=== PATIENT | female | born 1995 | race Caucasian/White ===

== ENCOUNTER 2017-09-29 07:41 | Emergency (ER) | payer BC ==
--- NOTE | 2017-09-29 07:52 | ER Document Report ---
HPI - HPI Pain Level: 2 Context: 22-year-old female complaining of swollen tonsils this morning. Mild pain when she swallows. No recent illness. No runny nose or cough. No fever. No chest pain or shortness of breath. No nausea vomiting or diarrhea. No abdominal pain. Last menstrual period 2 weeks ago. No contraception. Past Medical History - General Information source: Patient - Social History Smoking Status: Never Smoker Frequency of alcohol use: None Drug Abuse: None Lives with: Family Family History: Reviewed & Not Pertinent - Medical History Medical History: Negative Surgical Hx: Negative Vertical Provider Document - CONSTITUTIONAL Agree With Documented VS: Yes Exam Limitations: No Limitations General Appearance: No Apparent Distress - INFECTION CONTROL TRAVEL OUTSIDE OF THE [place] IN LAST 30 DAYS: No - HEENT HEENT: Normocephalic. negative: Pharyngeal Erythema, Tympanic Membrane Red Notes: large tonsils (she states aren't usually like this) airway open. no abscess. - NECK Neck: Supple. negative: Lymphadenopathy-Left, Lymphadenopathy-Right - RESPIRATORY Respiratory: Breath Sounds Normal, No Respiratory Distress - CARDIOVASCULAR Cardiovascular: Regular Rate, Regular Rhythm - MUSCULOSKELETAL/EXTREMETIES Musculoskeletal/Extremeties: MAEW, FROM - NEURO Level of Consciousness: Awake, Alert - DERM Integumentary: Warm, Dry, No Rash Discharge - Discharge Clinical Impression: Tonsillitis Condition: Good Disposition: HOME, SELF-CARE Instructions: ENT, Tonsillitis ([facility]) Additional Instructions: throat culture is pending to er if worse see ENT doctor if persists dose of steroid today for the tonsil swelling Prescriptions: Prednisone [Deltasone 10 mg Tablet] 10 mg PO ASDIR PRN #15 tablet PRN Reason: Forms: Parent Work Note, Return to Work
[2017-09-29] MEDS ORDERED: DEXAMETHASONE 4 MG TABLET PO ONE (08:18)
[2017-09-29 09:14] VITALS: BP 113/68
== END 2017-09-29 09:19 | disposition home or self-care (01) ==
LOC: ER 07:41
DX: J03.90 Acute tonsillitis, unspecified (principal)
CPT/HCPCS: 87070; 87880; 99283

== ENCOUNTER 2017-10-14 16:54 | Emergency (ER) | payer BC ==
--- NOTE | 2017-10-14 18:25 | ER Document Report ---
ED GI/ - General Chief Complaint: Flank Pain Stated Complaint: BACK PAIN Time Seen by Provider: 10/14/17 18:18 Mode of Arrival: Ambulatory Information source: Patient, [facility] Records Notes: This 22-year-old female patient comes emergency room complaining of right flank pain lower abdominal pain. She reports moved some furniture about 3 weeks ago. Was seen in the emergency room on 09/29/2017 with viral tonsillitis and discharged on steroids. On about 10/04/2017 she began having the right flank pain which tends to go down the back. She states that has not been getting any better. Last night she felt feverish and had chills. There is no nausea vomiting or diarrhea. There is no frequency or dysuria. Last menstrual period was about 28 days ago, she is due now, there is possibility of . The patient points to the area of her flank pain, is actually her paravertebral muscles in the thoracic back around the inferior medial scapular region. There is no CVA percussion tenderness on exam. TRAVEL OUTSIDE OF THE [place] IN LAST 30 DAYS: No - Related Data Allergies/Adverse Reactions: amoxicillin Allergy (Verified 10/14/17 16:55) Past Medical History - General Information source: Patient, [facility] Records - Social History Smoking Status: Never Smoker Cigarette use (# per day): No Chew tobacco use (# tins/day): No Smoking Education Provided: No Frequency of alcohol use: None Drug Abuse: None Occupation: Unemployed Lives with: Spouse/Significant other Family History: Reviewed & Not Pertinent Patient has suicidal ideation: No Patient has homicidal ideation: No - Medical History Medical History: Negative Surgical Hx: Negative Review of Systems - Review of Systems Constitutional: Chills, Fever EENT: No symptoms reported Cardiovascular: No symptoms reported Respiratory: Cough Gastrointestinal: No symptoms reported Genitourinary: No symptoms reported Female Genitourinary: See HPI - About 28 days ago Musculoskeletal: See HPI Skin: No symptoms reported Hematologic/Lymphatic: No symptoms reported Neurological/Psychological: No symptoms reported Physical Exam - Vital signs Vitals: Temp Pulse Resp BP Pulse Ox 98.6 F 130 H 18 129/77 H 98 10/14/17 17:10 10/14/17 17:10 10/14/17 17:10 10/14/17 17:10 10/14/17 17:10 Interpretation: Tachycardic - General General appearance: Appears well, Alert In distress: None - HEENT Head: Normocephalic, Atraumatic Eyes: Normal Pupils: PERRL Neck: Normal - Respiratory Respiratory status: No respiratory distress Breath sounds: Rhonchi - There is some rhonchi on forced cough. - Cardiovascular Rhythm: Regular, Tachycardia - 126 Heart sounds: Normal auscultation Murmur: No - Abdominal Inspection: Normal Tenderness: Nontender - Back Back: Tender - There is tenderness to palpate the right para spinous muscles around the T 7 to T10 level. There is no tenderness on the left side corresponding to that level.. No: CVA tenderness - There is no CVA percussion tenderness on the right or the left. - Extremities General upper extremity: Normal inspection General lower extremity: Normal inspection - Neurological Neuro grossly intact: Yes - Psychological Associated symptoms: Normal affect, Normal mood - Skin Skin Temperature: Warm Skin Moisture: Dry Skin Color: Normal Course - Re-evaluation Re-evalutation: 10/14/17 19:36 The patient's heart rate was 130 at triage. She was given several glasses of water to drink for a slightly concentrated urine This time the heart rate is still above 120 with no clear explanation. Informed her that we will send her to the back for IV hydration and a workup to look into why she remains tachycardic. She now states that she also has discomfort around the chest bilaterally. - Vital Signs Vital signs: Temp Pulse Resp BP Pulse Ox 98.6 F 130 H 18 129/77 H 98 10/14/17 17:10 10/14/17 17:10 10/14/17 17:10 10/14/17 17:10 10/14/17 17:10 - Laboratory Laboratory results interpreted by me: 10/14/17 18:25 Urine Ketones TRACE H Urine Blood MODERATE H
[2017-10-14 18:47] LABS: APPEARANCE,URINE SLIGHTLY-CLOUDY; BILIRUBIN,URINE NEGATIVE (NEGATIVE); COLOR,URINE YELLOW; GLUCOSE, URINE NEGATIVE (NEGATIVE); KETONES,URINE TRACE mg/dL (NEGATIVE); LEUKOCYTE ESTERASE,URINE NEGATIVE (NEGATIVE); NITRITE,URINE NEGATIVE (NEGATIVE); PROTEIN,URINE NEGATIVE (NEGATIVE); URINE SPECIFIC GRAVITY 1.027; UROBILINOGEN,URINE NEGATIVE mg/dL (<2.0)
[2017-10-14] MEDS ORDERED: NORMAL SALINE 1000 ML 1,000 ML IV PRN (19:34)
[2017-10-14 20:04] LABS: HEMATOCRIT 43.2 % (36.0-47.0); HEMOGLOBIN 14.3 g/dL (12.0-15.5); MEAN CORPUSCULAR HEMOGLOBIN 26.5 pg (27.0-33.4); MEAN CORPUSCULAR HGB CONC 33.1 g/dL (32.0-36.0); MEAN CORPUSCULAR VOLUME 80 fl (80-97); PLATELET COUNT 404 10^3/uL (150-450); RED CELL DISTRIBUTION WIDTH 13.6 % (11.5-14.0); WHITE BLOOD COUNT 23.6 10^3/uL (4.0-10.5)
[2017-10-14] MEDS ORDERED: LIDOCAINE 5% (700 MG) TRANSDERMAL ADH..PATCH TP ONE (20:06)
[2017-10-14] MEDS ORDERED: MORPHINE SULFATE IR 15 MG TABLET PO ONE (20:06)
[2017-10-14] MEDS ORDERED: IBUPROFEN 600 MG TABLET PO ONE (20:06)
[2017-10-14 20:20] LABS: ABSOLUTE LYMPHOCYTES# (MANUAL) 5.7 10^3/uL (0.5-4.7); ABSOLUTE MONOCYTES # (MANUAL) 0.7 10^3/uL (0.1-1.4); BASOPHILS % (MANUAL) 0 % (0-2); EOSINOPHILS % (MANUAL) 1 % (0-6); LYMPHOCYTES % (MANUAL) 19 % (13-45); MONOCYTES % (MANUAL) 3 % (3-13); SEGMENTED NEUTROPHILS % (MAN) 72 % (42-78); TOTAL CELLS COUNTED 100
[2017-10-14 20:22] LABS: PLATELET COMMENT ADEQUATE; PLATELET LARGE PRESENT
[2017-10-14 20:23] LABS: TOXIC GRANULATION SLIGHT
[2017-10-14 20:26] LABS: ALANINE AMINOTRANSFERASE 86 U/L (9-52); ALBUMIN 5.1 g/dL (3.5-5.0); ALKALINE PHOSPHATASE 176 U/L (38-126); ANION GAP 17 (5-19); ASPARTATE AMINO TRANSFERASE 30 U/L (14-36); BILIRUBIN,DIRECT 0.3 mg/dL (0.0-0.4); BILIRUBIN,TOTAL 0.8 mg/dL (0.2-1.3); BLOOD UREA NITROGEN 8 mg/dL (7-20); CALCIUM 10.7 mg/dL (8.4-10.2); CARBON DIOXIDE 27 mmol/L (22-30); CHLORIDE 98 mmol/L (98-107); GLUCOSE 78 mg/dL (75-110); POTASSIUM 3.7 mmol/L (3.6-5.0); SODIUM 142.4 mmol/L (137-145); TOTAL PROTEIN 8.8 g/dL (6.3-8.2)
--- NOTE | 2017-10-14 20:33 | RADIOLOGY REPORT (SQ) ---
EXAM DESCRIPTION: CHEST SINGLE VIEW COMPLETED DATE/TIME: 10/14/2017 8:15 pm REASON FOR STUDY: tachycardia, cough COMPARISON: None. EXAM PARAMETERS: NUMBER OF VIEWS: One view. TECHNIQUE: Single frontal radiographic view of the chest acquired. RADIATION DOSE: NA LIMITATIONS: None. FINDINGS: LUNGS AND PLEURA: No opacities, masses or pneumothorax. No pleural effusion. MEDIASTINUM AND HILAR STRUCTURES: No masses. Contour normal. HEART AND VASCULAR STRUCTURES: Heart normal in size. Normal vasculature. BONES: No acute findings. HARDWARE: None in the chest. OTHER: No other significant finding. IMPRESSION: NO ACUTE RADIOGRAPHIC FINDING IN THE CHEST. TECHNICAL DOCUMENTATION: JOB ID: [id number] [employer]- All Rights Reserved
[2017-10-14 20:42] LABS: FREE T3 3.16 pg/mL (2.77-5.27); FREE T4 (FREE THYROXINE) 1.06 ng/dL (0.78-2.19)
--- NOTE | 2017-10-14 20:47 | ER Document Report ---
ED General - General Chief Complaint: Flank Pain Stated Complaint: BACK PAIN Time Seen by Provider: 10/14/17 18:18 Mode of Arrival: Ambulatory Notes: Patient is a 22-year-old female without past medical history who presents with 1 week of progressively worsening right back pain, nausea, vomiting and lightheadedness. Patient states that the symptoms have been progressively worsening over the past 1 week. She states she received a course of steroids for sore throat approximately 2 weeks ago and after she finished that steroid course she began to develop these symptoms. She denies any history of similar symptoms in the past. Nothing improves or worsens her symptoms. He describes the pain in her back as being a dull, constant, throbbing pain most localized to the right subscapular space but notes that her entire back does hurt. She notes nausea and some decreased p.o. intake but no vomiting. Denies any localized abdominal pain. No chest pain or shortness of breath. No pleuritic pain. No history of DVT or pulmonary embolus. No use of estrogen. She has not seen a primary care doctor regarding today's concerns. She denies a fever. TRAVEL OUTSIDE OF THE [place] IN LAST 30 DAYS: No - Related Data Allergies/Adverse Reactions: amoxicillin Allergy (Verified 10/14/17 16:55) Past Medical History - General Information source: Patient, [facility] Records - Social History Smoking Status: Never Smoker Cigarette use (# per day): No Chew tobacco use (# tins/day): No Frequency of alcohol use: None Drug Abuse: None Occupation: Unemployed Lives with: Spouse/Significant other Family History: Reviewed & Not Pertinent Patient has suicidal ideation: No Patient has homicidal ideation: No - Medical History Medical History: Negative Renal/ Medical History: Denies: Hx Peritoneal Dialysis Surgical Hx: Negative Review of Systems - Review of Systems Notes: Constitutional: Negative for fever. HENT: Negative for sore throat. Eyes: Negative for visual changes. Cardiovascular: Negative for chest pain. Positive for lightheadedness Respiratory: Negative for shortness of breath. Gastrointestinal: Negative for abdominal pain, vomiting or diarrhea. Genitourinary: Negative for dysuria. Musculoskeletal: Positive for upper back pain. Skin: Negative for rash. Neurological: Negative for headaches, weakness or numbness. 10 point ROS negative except as marked above and in HPI. Physical Exam - Vital signs Vitals: Temp Pulse Resp BP Pulse Ox 98.6 F 130 H 18 129/77 H 98 10/14/17 17:10 10/14/17 17:10 10/14/17 17:10 10/14/17 17:10 10/14/17 17:10 Interpretation: Tachycardic Notes: PHYSICAL EXAMINATION: GENERAL: Well-appearing, well-nourished and in no acute distress. HEAD: Atraumatic, normocephalic. EYES: Pupils equal round and reactive to light, extraocular movements intact, sclera anicteric, conjunctiva are normal. ENT: nares patent, oropharynx clear without exudates. Moderately dry mucous membranes. NECK: Normal range of motion, supple without lymphadenopathy. No meningismus. LUNGS: Breath sounds clear to auscultation bilaterally and equal. No wheezes rales or rhonchi. HEART: Regular tachycardia without murmurs ABDOMEN: Soft, nontender, normoactive bowel sounds. No guarding, no rebound. No masses appreciated. EXTREMITIES: Normal range of motion, no pitting or edema. No cyanosis. NEUROLOGICAL: No focal neurological deficits. Moves all extremities spontaneously and on command. Back: There is pain on palpation of the right subscapular and perithoracic region but no obvious deformity or rash. No swelling. No midline tenderness. PSYCH: Normal mood, normal affect. SKIN: Warm, Dry, normal turgor, no rashes or lesions noted. Course - Re-evaluation Re-evalutation: 10/14/17 20:45 Presentation of an unusual case of the patient presented with 1 week of progressively worsening right-sided subscapular and perithoracic musculoskeletal pain with associated tachycardia, leukocytosis, but is overall nontoxic in appearance. Patient denies any clinical history of suggest an acute pulmonary embolus. She denies any pleuritic pain, shortness of breath, and does not have any risk factors with this diagnosis. Moreover her pain is located along her back which would be a very unusual presentation of this diagnosis. Her chest x-ray is clear does not show any evidence of pneumonia and although she does report that she has had a mild cough she does not have any tachypnea or hypoxemia to suggest a space-occupying infection of the lung. Her abdominal exam is completely benign and she denies any abdominal pain. Although she does have some mild bilateral CVA tenderness her urinalysis clear does not show any evidence of a nephrolithiasis or pyelonephritis and again her clinical history does not suggest either of these diagnoses. She states her symptoms started after finishing a course of steroids approximately a week ago. Rhabdomyolysis would also be on the differential this would be an unusually localized case. Will begin with IV fluids, pain control, and will continue to reassess the patient at this point I am not entirely certain of the etiology of her symptoms. Blood cultures have also been sent as she does meet SIRS criteria. 10/15/17 00:12 Patient has had complete resolution of all symptoms after aggressive IV hydration. Her heart rate is normalized now to 98 on reassessment. I have gone to the bedside and explained to the patient that I do not know the exact etiology of her initial presentation but given her overall very reassuring evaluation with the exception of a nonspecific leukocytosis I do not have a clear etiology for her initial presentation. Patient reports that she has not been drinking any water for the past several days, only soda and believes this may be related to her symptoms. I have conveyed I am uncertain if this is related or not but she did appear clinically dehydrated at time of presentation. Moreover her heart rate has normalized with 2 L of IV fluid. Right upper quadrant ultrasound unremarkable, CT of the chest without PE or dissection or any evidence of additional pathology. At this time will discharge with return precautions and follow-up recommendations. Verbal discharge instructions given a the bedside and opportunity for questions given. Medication warnings reviewed. Patient is in agreement with this plan and has verbalized understanding of return precautions and the need for primary care follow-up in the next 24-72 hours. - Vital Signs Vital signs: Temp Pulse Resp BP Pulse Ox 98.6 F 130 H 13 116/80 98 10/14/17 17:10 10/14/17 17:10 10/15/17 00:00 10/14/17 21:01 10/15/17 00:00 - Laboratory Result Diagrams: 10/14/17 19:50 10/14/17 19:50 Laboratory results interpreted by me: 10/14/17 10/14/17 10/14/17 18:25 19:50 19:50 WBC 23.6 H RBC 5.40 H MCH 26.5 L Abs Neuts (Manual) 17.0 H Abs Lymphs (Manual) 5.7 H Calcium 10.7 H ALT 86 H Alkaline Phosphatase 176 H Total Protein 8.8 H Albumin 5.1 H Urine Ketones TRACE H Urine Blood MODERATE H - Diagnostic Test Radiology reviewed: Image reviewed, Reports reviewed Radiology results interpreted by me: 10/14/17 20:47 Chest x-ray: No acute infiltrate or pneumothorax - EKG Interpretation by Me Additional EKG results interpreted by me: 10/14/17 20:48 Sinus tachycardia. Rate 117. No ST elevations or depressions. QTC is 441. Discharge - Discharge Clinical Impression: Dehydration, Sinus tachycardia Thoracic back pain Qualifiers: Chronicity: acute Back pain laterality: right Qualified Code(s): M54.6 - Pain in thoracic spine Condition: Good Disposition: HOME, SELF-CARE Additional Instructions: The exact cause of your initial symptoms is unclear but you have improved after IV fluids and symptom control. The CT scan of your chest, gallbladder ultrasound, and chest x-ray are all normal. Your labs show an elevated white blood cell count but do not show any other findings. Please follow-up with your primary care doctor in the next 1-2 days. Return to the emergency department immediately if you have any new or worsening symptoms including shortness of breath, pass out, fever greater than 100.4F, abdominal pain, vomiting, or any other symptoms that are worrisome to you.
[2017-10-14 20:56] LABS: THYROID STIMULATING HORMONE 1.57 uIU/mL (0.47-4.68)
[2017-10-14 20:57] LABS: CREATINE KINASE 59 U/L (30-135)
--- NOTE | 2017-10-14 22:22 | RADIOLOGY REPORT (SQ) ---
EXAM DESCRIPTION: CTA CHEST COMPLETED DATE/TIME: 10/14/2017 9:58 pm REASON FOR STUDY: persistent tachycardia, chest pain COMPARISON: None. TECHNIQUE: CT scan of the chest performed using helical scanning technique with dynamic intravenous contrast injection. Images reviewed with lung, soft tissue and bone windows. Reconstructed coronal and sagittal MPR images reviewed. Additional 3 dimensional post-processing performed to develop Maximal Intensity Projection images (NH P). All images stored on PACS. All CT scanners at this facility use dose modulation, iterative reconstruction, and/or weight based d osing when appropriate to reduce radiation dose to as low as reasonably achievable (ALARA). [facility]: Dose Right [facility]: CareDose [facility]: Dose Right [facility]: Teradose 4D [facility]: [employer] CONTRAST TYPE AND DOSE: contrast/concentration: Isovue 370.00 mg/ml; Total Contrast Delivered: 71.0 ml; Total Saline Delivered: 110.0 ml Contrast bolus optimized for the pulmonary arteries. Not diagnostic for the aorta. RENAL FUNCTION: BUN 8; creatinine 0.57 RADIATION DOSE: CT Rad equipment meets quality standard of care and radiation dose reduction techniq ues were employed. CTDIvol: 9.9 - 14.3 mGy. DLP: 534 mGy-cm. . LIMITATIONS: None. FINDINGS: LUNGS AND PLEURA: No masses, infiltrates, pneumothorax. No pleural effusions, calcificati ons. AORTA AND GREAT VESSELS: No aneurysm. Contrast bolus not optimized for the aorta. HEART: No pericardial effusion. No significant coronary artery calcifications. PULMONARY ARTERIES: No emboli visualized in the main pulmonary arteries or the segmental branches. HILAR AND MEDIASTINAL STRUCTURES: No identified masses or abnormal nodes. HARDWARE: None in the chest. UPPER ABDOMEN: No significant findings. Limited exam. THYROID AND OTHER SOFT TISSUES: No masses. No adenopathy. BONES: No acute or significant finding. 3D MIPS: Confirm above findings. OTHER: No other significant finding. IMPRESSION: NORMAL CTA OF THE CHEST. NO PULMONARY EMBOLI. COMMENT: Quality ID # [id number]: Final reports with documentation of one or more dose reduction techniques (e.g., Automated exposure control, adjustment of the mA and/or kV according to patient size, use of iterative reconstruction technique) TECHNICAL DOCUMENTATION: JOB ID: [id number] [employer]- All Rights Reserved
--- NOTE | 2017-10-14 22:28 | RADIOLOGY REPORT (SQ) ---
EXAM DESCRIPTION: U/S ABDOMEN LIMITED W/O DOP COMPLETED DATE/TIME: 10/14/2017 10:14 pm REASON FOR STUDY: eval cholecystitis COMPARISON: Chest CT 10/14/2017 TECHNIQUE: Dynamic and static grayscale images acquired of the abdomen and recorded on PACS. Additio nal selected color Doppler and spectral images recorded. LIMITATIONS: Intervening bowel gas precludes adequate visualization of the pancreas. FINDINGS: PANCREAS: Not adequately visualized; however, this structure appears normal on CT imaging performed this same date. LIVER: No masses. Echotexture normal. LIVER VASCULATURE: Normal directional flow of the main portal vein and hepatic veins. GALLBLADDER: No stones. Normal wall thickness. No pericholecystic fluid. ULTRASOUND-DETECTED PATTERSON'S SIGN: Negative. INTRAHEPATIC DUCTS AND COMMON DUCT: CBD and intrahepatic ducts normal caliber. No filling defects. INFERIOR VENA CAVA: Normal flow. AORTA: No aneurysm. RIGHT KIDNEY: Normal size. Normal echogenicity. No solid or suspicious masses. No hydronephrosis. No calcifications. PERITONEAL AND RIGHT PLEURAL SPACE: No ascites or effusions. OTHER: No other significant findings. IMPRESSION: NORMAL RIGHT UPPER QUADRANT ULTRASOUND. TECHNICAL DOCUMENTATION: JOB ID: [id number] [employer]- All Rights Reserved
[2017-10-14 22:54] VITALS: BP 116/80
--- NOTE | 2017-10-15 17:28 | EKG REPORT ---
SEVERITY:- OTHERWISE NORMAL ECG - SINUS TACHYCARDIA : Confirmed by: Tal Patel 15-Oct-2017 12:17:33
== END 2017-10-15 00:37 | disposition home or self-care (01) ==
LOC: ER 16:54
DX: E86.0 Dehydration (principal); M54.6 Pain in thoracic spine; R00.0 Tachycardia, unspecified; R10.9 Unspecified abdominal pain; M54.9 Dorsalgia, unspecified; R42 Dizziness and giddiness
CPT/HCPCS: 93005; 99285; 96360; 96361; 36415; 87040; 87086; 84439; 82550; 84443; 85025; 81025; 80053; 81001; 84481; 71045; 76705; 71275; 93010; J7030

== ENCOUNTER → 2017-10-20 | Outpatient (CLI) | payer BC | LOC: LAB 18:04 | PROVIDERS: ATTEND Nurse Practitioner Acute Care | DX: R30.0 Dysuria (principal) | CPT/HCPCS: 87086; 87088; 87186 ==